=== PATIENT | male | born 1995 | race Hispanic/Latino ===

== ENCOUNTER → 2023-06-11 | Emergency (ER) | payer BC, SELFPAY ==
--- OUTSIDE RECORDS SUMMARY | 2023-06-11 09:37 | XMS REPORT | Continuity of Care Document ---
Author Name Unknown Address [address] [facility] [place] [address] [facility] thconnect Address [address] [facility] [address] [place] [address] Care Team Providers Care Report Programmer Name Role Phone Pcp, Patient Does Not Have A Primary Care Physic earl DELANEY BERRY Attending Clinician Unavailable Delaney Berry MD Attending Clinician Manuel SANDOVAL, Alana Long Attending Clinician Unavaila ble Only, Ang Db Test Attending Clinician UnavailSukhi RASHEEDP, Claire Vazquez Attending Clinician Doctor Unassigned, [place] Attending Clinician U navailable Payers Payer Name Policy Type Policy Number Effective Date Expirati on Date Source [facility] [id number] 2022 00:00:00 Problems Condition Name Condition Details Condition Category Status Onset Date Resolution Date Last Treatment Date Treating Clinician Comments Source Routine or child health check Routine infant or child health check Disease Active 10-28 00:00: 00 [facility] Allergies, Adverse Reactions, Alerts Allergy Name Allergy Type Status Severity Reaction(s) Onset Date Inactive Date Treating Clinician Comments Source NO KNOWN ALLERGIE S Drug Class Active [facility] Social History Social Habit Start Date Stop Date Quantity Comments Source Exposure to SARS-CoV-2 (event) Not sure [facility] Sexual orientation U [facility] Sex Assigned At 1995 00:00:00 1995 00:00:00 [facility] Smoking Status Start Date Stop Date Source Tobacco smoking consumption unknown [facility] Medications Ordered Medication Name Filled Medication Name Start Date Stop Date Current Medication? Ordering Clinician Indication Dosage Frequency Signature (SIG) Comments Components Source No known medications No Un zari [facility] No known medications No Un zari [facility] No known medications No Un zari [facility] No known medications No Un zari [facility] No known medications No Un zari [facility] No known medications No Un zari [facility] No known medications No Un zari [facility] Encounters Start Date/Time End Date/Time Encounter Type Admission Type Attending [facility] Facility Care Department Encounter ID Source 2023-04-29 16:33:50 2023-04-29 16:33:50 Outpatient [facility] [id number] Long Ramin 2023-01-08 00:29:00 2023-01-08 00:30:00 Emergency X DELANEY BERRY [facility] ERT [id number] [facility] 2023-01-08 00:29:00 2023-01-08 00:30:00 Emergency LizzdomenicchicoDelaney S [facility] [id number] [facility] 2020-11-29 00:00:00 2020-11-29 00:00:00 Telephone Alana Jackson [facility] [id number] [facility] 2020-11-27 16:30:00 2020-11-27 16:30:00 Outpatient R [facility] [id number] [facility] 2020-11-27 16:09:58 2020-11-27 16:24:58 Laboratory Only Only, Ang Db Test Claire Young [facility] Favio Hernández?Ayanna davis [facility] [id number]..[id number] [facility] 2020-11-27 00:00:00 2020-11-27 00:00:00 Letter (Out) Doctor Unassigned, Alamillo [facility] [id number] [id number] [facility] 2020-11-27 00:00:00 2020-11-27 00:00:00 Letter (Out) Doctor Unassigned, [place] [id number] [facility] 2020-11-10 12:30:00 2020-11-10 12:30:00 Outpatient R [facility] [id number] [facility]
--- NOTE | 2023-06-11 09:52 | EDPHYS ---
Physician Documentation [facility] Name: Hank Rivas Age: 27 yrs Sex: Male : 1995 Arrival Date: 06/11/2023 Time: 09:34 Bed 16 Private MD: ED Physician Cory Moreno HPI: 06/10 09:38 This 27 yrs old Male presents to ER via Ambulatory with complaints of Facial jh7 Swelling. 09:38 Onset: The symptoms/episode began/occurred this morning. Associated signs and symptoms: jh7 The patient has no apparent associated signs or symptoms. The patient has experienced similar episodes in the past, multiple times. 27-year-old male with no prior medical history presents to the ER for intermittent facial swelling. He reports that the symptoms started 2 months ago and they will range from facial swelling, lip swelling, and hives. He reports that he has been taking Taylor every day and that the symptoms improve, but he would like allergy testing to determine what is causing this. Calm and in no distress at this time.. Historical: - Allergies: 09:41 NKDA; ko1 - Home Meds: 09:41 None [Active]; ko1 - PMHx: 09:41 None; ko1 - Immunization history:: Adult Immunizations up to date. - Social history:: Smoking status: Patient denies any tobacco usage or history of. ROS: 09:38 Constitutional: Negative for fever, chills, and weight loss, Eyes: Negative for injury, jh7 pain, redness, and discharge, Neck: Negative for injury, pain, and swelling, Cardiovascular: Negative for chest pain, palpitations, and edema, Respiratory: Negative for shortness of breath, cough, wheezing, and pleuritic chest pain, Abdomen/GI: Negative for abdominal pain, nausea, vomiting, diarrhea, and constipation, MS/Extremity: Negative for injury and deformity, Neuro: Negative for headache, weakness, numbness, tingling, and seizure, 09:38 Skin: Positive for swelling, of the right cheek, 09:38 All other systems are negative, Exam: 09:38 Constitutional: This is a well developed, well nourished patient who is awake, alert, jh7 and in no acute distress. Eyes: Pupils equal round and reactive to light, extra-ocular motions intact. Lids and lashes normal. Conjunctiva and sclera are non-icteric and not injected. Cornea within normal limits. Periorbital areas with no swelling, redness, or edema. Neck: Trachea midline, no thyromegaly or masses palpated, and no cervical lymphadenopathy. Supple, full range of motion without nuchal rigidity, or vertebral point tenderness. No Meningismus. Cardiovascular: Regular rate and rhythm with a normal S1 and S2. No gallops, murmurs, or rubs. Normal PMI, no JVD. No pulse deficits. Respiratory: Lungs have equal breath sounds bilaterally, clear to auscultation and percussion. No rales, rhonchi or wheezes noted. No increased work of breathing, no retractions or nasal flaring. Abdomen/GI: Soft, non-tender, with normal bowel sounds. No distension or tympany. No guarding or rebound. No evidence of tenderness throughout. Skin: Warm, dry with normal turgor. Normal color with no rashes, no lesions, and no evidence of cellulitis. Neuro: Awake and alert, GCS 15, oriented to person, place, time, and situation. Motor strength 5/5 in all extremities. Sensory grossly intact. Normal gait. 09:38 Head/face: Noted is swelling, that is mild, of the right cheek, 09:38 ENT: TM's: are normal, Dental exam: normal, Vital Signs: 09:38 BP 122 / 85; Pulse 72; Resp 15; Temp 98.4; Pulse Ox 100% on R/A; ko1 MDM: 09:37 Patient medically screened. [facility] 09:45 Differential diagnosis: viral Infection, URI, Idiopathic hives that angioedema, [facility] allergic reaction, seasonal allergies. Data reviewed: vital signs, nurses notes. Counseling: I had a detailed discussion with the patient and/or guardian regarding the historical points, exam findings, and any diagnostic results supporting the discharge/admit diagnosis, to return to the emergency department if symptoms worsen or persist or if there are any questions or concerns that arise at home. Special discussion: Based on the history and exam findings, there is no indication for further emergent testing or inpatient evaluation. I discussed with the patient/guardian the need to see the preschool substitute teacher for further evaluation of the symptoms. Patient declined any medications to be given in the ER.. Administered Medications: No medications were administered Disposition Summary: 06/11/23 09:52 Discharge Ordered Notes: Location: Home [facility] Problem: an ongoing problem [facility] Symptoms: are unchanged [facility] Condition: Stable [facility] Diagnosis - Allergic reaction 7 - Facial swelling [facility] Followup: [facility] - With: Private Physician - When: 2 - 3 days - Reason: Recheck today's complaints Discharge Instructions: - Discharge Summary Sheet [facility] - Hives 7 - Angioedema [facility] Forms: - Medication Reconciliation Form [facility] - Thank You Letter [facility] - Patient Portal Instructions [facility] - Leadership Thank You Letter [facility] Prescriptions: - Hydroxyzine HCl 25 mg Oral Tablet - take 1 tablet ORAL route every 6 hours As needed; 30 tablet; Refills: 0, [facility] Product Selection Permitted - Prednisone 20 mg Oral Tablet - take 2 tablets ORAL route once daily for 5 days; 10 tablet; Refills: 0, Product [facility] Selection Permitted Signatures: Elvia Johnsno, MILLA LEAD QUALITY TECHNICIAN [facility] Celi Puente RN RN ko1 Corrections: (The following items were deleted from the chart) 10:05 09:45 Special discussion: Based on the history and exam findings, there is no [facility] indication for further emergent testing or inpatient evaluation. I discussed with the patient/guardian the need to see the preschool substitute teacher for further evaluation of the symptoms. [facility]
--- NOTE | 2023-06-11 09:52 | ER ---
Nurse's Notes [facility] Name: Hank Rivas Age: 27 yrs Sex: Male : 1995 Arrival Date: 06/11/2023 Time: 09:34 Bed 16 Private MD: Diagnosis: Allergic reaction;Facial swelling Presentation: 06/10 09:38 Chief complaint: Patient states: woke up this morning with the right side of face ko1 swollen, not painful, teeth do not hurt, no medications. Coronavirus screen: At this time, the client does not indicate any symptoms associated with coronavirus-19. Ebola Screen: No symptoms or risks identified at this time. Initial Sepsis Screen: Does the patient meet any 2 criteria? No. Patient's initial sepsis screen is negative. Does the patient have a suspected source of infection? No. Patient's initial sepsis screen is negative. Risk Assessment: Do you want to hurt yourself or someone else? Patient reports no desire to harm self or others. Onset of symptoms was June 11, 2023. 09:38 Method Of Arrival: Ambulatory ko1 09:38 Acuity: SULEIMAN 4 ko1 Triage Assessment: 09:41 General: Appears in no apparent distress. Behavior is calm, cooperative, appropriate ko1 for age. Pain: Denies pain. Historical: - Allergies: 09:41 NKDA; ko1 - Home Meds: 09:41 None [Active]; ko1 - PMHx: 09:41 None; ko1 - Immunization history:: Adult Immunizations up to date. - Social history:: Smoking status: Patient denies any tobacco usage or history of. Screenin:45 [facility] ED Fall Risk Assessment (Adult) History of falling in the last 3 months, ph including since admission No falls in past 3 months (0 pts) Confusion or Disorientation No (0 pts) Intoxicated or Sedated No (0 pts) Impaired Gait No (0 pts) Mobility Assist Device Used No (0 pt) Altered Elimination No (0 pt) Score/Fall Risk Level 0 - 2 = Low Risk Oriented to surroundings, Maintained a safe environment, Provided non-skid footwear, Hourly rounding (assess needs \T\ fall precautionary measures) done. Abuse screen: Denies threats or abuse. Denies injuries from another. Nutritional screening: No deficits noted. Tuberculosis screening: No symptoms or risk factors identified. Assessment: 09:44 General: Appears in no apparent distress. comfortable, well groomed, Behavior is calm, ph cooperative, appropriate for age. Pain: Denies pain. Neuro: Level of Consciousness is awake, alert, obeys commands, Oriented to person, place, time, situation. Respiratory: Airway is patent Respiratory effort is even, unlabored, Respiratory pattern is regular, symmetrical, Denies shortness of breath. Derm: Skin is pink, warm \T\ dry. Vital Signs: 09:38 BP 122 / 85; Pulse 72; Resp 15; Temp 98.4; Pulse Ox 100% on R/A; ko1 ED Course: 09:36 Patient arrived in ED. rg4 09:37 Elvia Johnson FNP is PSYCHIATRICP. 7 09:37 Cory Moreno MD is Attending Physician. [facility] 09:41 Triage completed. ko1 09:41 Arm band placed on left wrist. Patient placed in an exam room, on a stretcher, on pulse ko1 oximetry, Patient notified of wait time. 09:43 Angelica Chawla, RN is Primary Nurse. ph 09:45 Patient has correct armband on for positive identification. Bed in low position. Call ph light in reach. Side rails up X 1. Pulse ox on. NIBP on. Door closed. Noise minimized. 09:45 Provided Education on: time for test results and use of call light. ph 10:15 No provider procedures requiring assistance completed. Patient did not have IV access ph during this emergency room visit. Administered Medications: No medications were administered Medication: 09:45 VIS not applicable for this client. ph Outcome: 09:52 Discharge ordered by . [facility] 10:15 Discharged to home ambulatory, ph 10:15 Condition: good 10:15 Discharge instructions given to patient, Instructed on discharge instructions, follow up and referral plans. medication usage, Demonstrated understanding of instructions, follow-up care, medications, Prescriptions given X 2, 10:16 Patient left the ED. ph Signatures: Angelica Chawla, RN RN Jyoti Sam rg4 Elvia Johnson FNP FNP [facility] Celi Puente RN RN ko1
[2023-06-11 10:23] VITALS: BP 122/85; TEMP 98.4; O2SAT 100
== END ==
LOC: ER 09:34
DX: R22.0 Localized swelling, mass and lump, head (principal)
CPT/HCPCS: 99283